=== PATIENT | male | born 1940 | race Caucasian/White ===

== ENCOUNTER → 2018-01-08 | Outpatient (CLI) | payer OTHER ==
[~2018-01-08] MED LIST: IOHEXOL 300 MG/ML 100ML VIAL. IV ONE
--- NOTE | 2018-01-08 14:06 | KCIC ---
CT ABDOMEN PELVIS WO/W Indication: Intermittent gross and microscopic hematuria for 20 years. Exposure: One or more of the following individualized dose reduction techniques were utilized for this examination: 1. Automated exposure control 2. Adjustment of the mA and/or kV according to patient size 3. Use of iterative reconstruction technique. Comparison: None are available. Technique: Scanning performed before, during and after intravenous contrast administration. Oral contrast is not given. 3-D MIP reconstructions are obtained of the urinary tracts. FINDINGS: Lower thorax: Mild linear markings in the right lung base medially compatible with fibrosis or atelectasis. Urinary tracts:No urolithiasis or hydronephrosis. Urinary bladder: Mild diffuse wall thickening. Kidneys: Symmetric enhancement. Bilateral low-density lesions, largest measures 15 mm diameter.. Difficult to obtain accurate density measurements but these may represent cysts. Liver: Hypodense, compatible with fatty infiltration. Spleen: Unremarkable Pancreas: Unremarkable Adrenals:No evidence of mass. Gallbladder: Multiple large gallstones. No obvious wall thickening. Aorta: Calcified, nonaneurysmal. Note that there appear to be paired right renal arteries. Lymph nodes: No significant enlargement GI tract: Small hiatal hernia. Ovoid fatty density lesion within the proximal small bowel, at the jejunal duodenal junction. Measures about 2.5 cm x 0.5 cm, may represent a lipoma. No bowel obstruction. No evidence of acute colitis. Appendix is normal. Reproductive organs: Prostate gland is severely enlarged, measuring 7.5 cm wide. The prostate indents the inferior urinary bladder. Peritoneum: No evidence of pneumoperitoneum. No free fluid. Abdominal wall: Tiny umbilical hernia at the anterior abdominal wall contains a very small segment of small bowel. Spine: Degenerative spondylosis. Lumbar stenosis. Bones: No destructive bone lesion. IMPRESSION: 1. No evidence of urolithiasis or obstruction. 2. Bilateral small low-density liver lesions, too small to characterize but likely cysts. 3. Cholelithiasis. 4. Small fatty lesion within the proximal small bowel, may represent a lipoma. 5. Severe prostatomegaly. 6. Mild urinary bladder wall thickening, could be due to chronic outlet obstruction or cystitis. 7. Tiny anterior abdominal wall umbilical hernia. Electronically signed by: Anderson Matta MD (01/08/2018 2:03 PM) [id number]
== END | disposition home or self-care (01) ==
LOC: KCIC CT 09:48
PROVIDERS: ATTEND Urology
DX: K80.20 Calculus of gallbladder without cholecystitis without obstruction (principal); K42.9 Umbilical hernia without obstruction or gangrene; N32.89 Other specified disorders of bladder; K76.9 Liver disease, unspecified
CPT/HCPCS: 74178; 82565; Q9967